=== PATIENT | female | born 2000 | race Two or more races ===

== ENCOUNTER → 2018-09-12 | Emergency (ER) | payer OTHER ==
[~2018-09-12] VITALS: Ht 160 cm; Wt 112.5 kg
[~2018-09-12] MED LIST: KETO10TA2 PO; MUCINEX DM ER1 EAC1 PO; TAMIFLU45 MG PO; TESSALON PERLE100 M1 PO
== END | disposition home or self-care (01) ==
LOC: ER 23:40
DX: J11.1 Influenza due to unidentified influenza virus with other respiratory manifestations (principal)

== ENCOUNTER 2024-03-08 21:19 | Emergency (ER) | payer OTHER ==
[~2024-03-08] VITALS: Ht 162.6 cm; Wt 119.7 kg
[~2024-03-08 21:19] MED LIST changes: +FOLIC ACID0.8 M1 PO; +PRENATAL CAPLE1 EAC1 PO; +VALTREX1000 MG PO
[2024-03-08 21:50] LABS: HEMATOCRIT 31.3 % (36.0-45.00); HEMOGLOBIN 10.3 g/dL (12.0-15.00); MEAN CELL VOLUME 81.5 fL (80.00-100.00); MEAN CORPUSCULAR HEMOGLOBIN 26.9 pg (27.00-32.0); PLATELET COUNT 422 K/uL (150-450); RED BLOOD COUNT 3.84 M/uL (4.00-6.00); RED CELL DISTRIBUTION WIDTH 15.4 % (11.5-14.5)
[2024-03-08 22:09] LABS: CALCIUM 9.2 mg/dL (8.5-10.1); CREATININE SERUM 1.19 mg/dL (0.55-1.02); GFR 55.27; POTASSIUM 4.15 mEq/L (3.5-5.1)
[2024-03-08] MEDS ORDERED: CEFTRIAXONE SODIUM 1,000 MG VIAL IM STA (22:50)
[2024-03-08] MEDS ORDERED: CEFTRIAXONE SODIUM 1,000 MG VIAL ONE (22:56)
== END 2024-03-08 23:09 | disposition home or self-care (01) ==
LOC: ER 21:20
PROVIDERS: General Practice
DX: O90.89 Other complications of the puerperium, not elsewhere classified (principal)